=== PATIENT | male | born 1995 | race Caucasian/White ===

== ENCOUNTER 2022-03-31 08:58 | Outpatient (CLI) | payer OTHER, SELFPAY ==
[2022-03-31 18:42] LABS: Basophils Percent Auto 0.3 % (0.2-1.2); Eosinophils Absolute Auto 0.1 K/mm3 (0-0.3); Eosinophils Percent Auto 1.3 % (0-4.4); Hematocrit 47.7 % (42.0-52.0); Hemoglobin 16.5 g/dL (14.0-18.0); Immature Granulocyte Absolute 0.02 K/mm3 (0.00-0.031); Immature Granulocyte Percent A 0.3 % (0-0.5); Lymphocytes Percent Auto 38.9 % (18.3-44.2); Mean Corpuscular HGB Conc 34.6 g/dl (32-36); Mean Corpuscular Hemoglobin 31.3 pg (26-34); Mean Corpuscular Volume 90.3 fl (80-100); Mean Platelet Volume 12.5 fl (7.4-10.4); Monocytes Absolute Auto 0.7 K/mm3 (0.1-0.6); Monocytes Percent Auto 8.7 % (2.6-8.5); Neutrophils Absolute Auto 3.8 K/mm3 (1.3-6.7); Neutrophils Percent Auto 50.5 % (45.5-73.1); Platelet Count Result 177 k/mm3 (150-375); Red Blood Count 5.28 M/mm3 (4.6-6.20); Red Cell Distribution Width 11.3 % (11.5-14.5); White Blood Count 7.5 K/mm3 (4.5-10.0)
[2022-03-31 19:41] LABS: Alanine Aminotransferase 43 U/L (6-50); Albumin Level 4.6 g/dL (3.5-5.1); Alkaline Phosphatase 78 U/L (38-126); Anion Gap 4 mmol/L (8-16); Aspartate Amino Transferase 47 U/L (17-59); Bilirubin,Total 0.5 mg/dL (0.2-1.3); Blood Urea Nitrogen 16 mg/dL (9-20); Calcium 9.2 mg/dL (8.4-10.2); Carbon Dioxide 31 mmol/L (22-30); Chloride 101 mmol/L (98-107); Cholesterol 247 mg/dL (0-200); Estimated Glomerular Filt Rate > 60; Glucose 83 mg/dL (65-110); HDL Direct 42 mg/dL; Potassium 4.3 mmol/L (3.4-5.0); Sodium 136 mmol/L (137-145); Triglycerides 289 mg/dL (<150)
[2022-03-31 19:52] LABS: LDL Cholesterol Direct 114 mg/dL
== END 2022-03-31 08:59 | disposition home or self-care (01) ==
LOC: ANHGOSHLAB 08:59
PROVIDERS: PCP Internal Medicine; Visit Provider Nurse Practitioner
DX: F90.9 Attention-deficit hyperactivity disorder, unspecified type (principal); Z13.220 Encounter for screening for lipoid disorders
CPT/HCPCS: 36415; 80053; 80061; 84443; 85025

== ENCOUNTER → 2022-05-22 10:21 | Outpatient (CLI) | payer OTHER, BC, SELFPAY ==
--- NOTE | ~2022-05-22 | US_ITS ---
Ultrasound of the left groin CLINICAL HISTORY: Pain TECHNIQUE: Transabdominal imaging of the left groin region was performed. FINDINGS: Multiple morphologically normal lymph nodes are present, with fatty saud and reniform corti loren. No abnormal mass lesion or fluid collection seen. IMPRESSION: No significant abnormality seen. Reviewed, dictated and finalized at [facility].
--- NOTE | ~2022-05-22 | US_ITS ---
Testicular ultrasound with doppler. Indication: Testicular pain. Technique: Real-time sonography the scrotum was performed. Color flow Doppler and Doppler spectral an alysis were performed. Findings: The testes are homogeneous in echotexture bilaterally. There is no evidence of an intrates ticular mass. The right testis measures 3.0 x 3.7 x 1.6 cm and the left 3.6 x 2.5 x 1.8 cm. There is color-flow seen to both testes. Arterial and venous spectral waveforms are seen in both testes. There is no sonographic evidence of torsion. Subcentimeter bilateral epididymal head cysts or spermatocele s are noted. Impression: No significant abnormality seen. Reviewed, dictated and finalized at location . Impression: No significant abnormality seen.
== END ==
PROVIDERS: PCP Nurse Practitioner; Visit Provider Nurse Practitioner
DX: R10.30 Lower abdominal pain, unspecified (principal); N50.819 Testicular pain, unspecified
CPT/HCPCS: 76870; 76882; 93976

== ENCOUNTER 2024-11-04 09:23 | Outpatient (CLI) | payer OTHER, SELFPAY ==
--- OUTSIDE RECORDS SUMMARY | 2024-11-04 09:27 | XMS_ITS | Clinical Summary ---
Author Organization [address] Address [address] [place] [address] Care Team Providers Care Animal Anatomy Teacher Name Role Phone Laith ChappellRenetta MARTINEZ Primary Care Provider [phone] Allergies No known active allergies Medications dextroamphetami ne-amphetamine (ADDERALL) 10 mg tablet Take 1 tablet (10 mg total) by mouth 2 (two) times a day 2 Active propranoloL (INDERAL) 10 mg tablet Take by mouth 2 (two) times a day as needed 2 Active benzonatate (TESSALON) 200 mg capsuleIndicati ons:Cough Take 1 capsule (200 mg total) by mouth 3 (three) times a day as needed for cough 30 capsule 2 Active Additional Information Patient not taking.Reported on 09/15/2024 albuterol HFA (PROVENTIL HFA,VENTOLIN HFA,PROAIR HFA) 90 mcg/actuation inhalerIndicati ons:Cough Inhale 2 puffs every 6 (six) hours as needed for wheezing or shortness of breath 1 each 2 Active Additional Information Patient not taking.Reported on 09/15/2024 terbinafine (LamISIL) 1 % cream Apply topically 2 (two) times a day 24 g 3 Active Additional Information Patient not taking.Reported on 09/15/2024 methylphenidate HCl (RITALIN) 10 mg tablet Take 1 tablet (10 mg total) by mouth 2 (two) times a day 3 Active traZODone (DESYREL) 50 mg tablet TAKE 1 TABLET BY MOUTH EVERY NIGHT AT BEDTIME FOR SLEEP NEEDED 5 Active escitalopram (LEXAPRO) 20 mg tablet TAKE 1 TABLET BY MOUTH OCNE A DAY Active Active Problems Problem Noted Date Diagnosed Date Syncope 05/22/2020 Migraines 05/22/2020 History of seizures 01/29/2018 Migraine without aura and wi thout status migrainosus, not intractable 03/13/2016 Encounters Date Type Department Care Team Description 09/16/2024 Results Follow-Up [facility] at [address] [address] Kenna Mcfarlane NP Influenza A/B, RSV, and COVID-19 PCR Nasopharyngeal, Throat culture Throat 09/15/2024 5:05 PM CDT - 09/15/2024 11:59 [place] [address] Acute cough Discharge Disposition: Discharge to home or self care 09/15/2024 4:45 PM CDT Office Visit [facility] at [address] [address] Kenna Mcfarlane NP Acute cough (Primary Dx); Acute viral syndrome from Last 3 Months Medical History Medical History Date Comments Seizures (HCC) Migraine Syncope Social History Tobacco Use Types Packs/Day Years Used Date Smoking Tobacco: Never Smokeless Tobacco: Never Tobacco Cessation:Counseling Given: Not Answered Sex and Gender Information Value Date Recorded Sex Assigned at Not on file Legal Sex Male 2:12 AM EMAIL DEVELOPER Gender Identity Not on file Sexual Orientation Not on file Obstetrics History Last Filed Vital Signs Vital Sign Reading Time Taken Comments Blood Pressure 126/78 09/15/2024 4:44 PM CDT Pulse 78 09/15/2024 4:44 PM CDT Temperature 37.4 C (99.3 F) 09/15/2024 4:44 PM CDT Respiratory Rate 16 09/15/2024 4:44 PM CDT Oxygen Saturation 98% 09/15/2024 4:44 PM CDT Inhaled Oxygen Concentration - - Weight 105.7 kg (233 lb) 09/15/2024 4:44 PM CDT Height 180.3 cm (5' 10.98) 10/20/2022 5:24 PM C DT Body Mass Index 32.52 10/20/2022 5:24 PM CDT Plan of Treatment Health Maintenance Due Date Last Done Comments Depression Screening 1997 Hepatitis C Screening 1997 DTaP/Tdap/Td Vaccine (1 - Tdap) 2008 Varicella Vaccines (1 of 2 - 13+ 2-dose series) 2010 Hepatitis B Screening 04/11/2015 Regular Well Visit/Exam 18-64 04/11/2015 HPV Vaccines (1 - 3-dose SCD M series) 2024 Covid-19 Vaccine (4 - 2024-2 6 season) 2024 03/05/2021, 05/20/2020, 04/29/2020 Influenza Vaccine (#1) 2024 Pneumococcal vaccine <65 Aged Out No longer eligible based on patient's age to complete this topic Procedures Procedure Name Priority Date/Time Associated Diagnosis Comments THROAT CULTURE Routine 09/15/2024 5:05 PM CDT Acute cough INFLUENZA A/B, RSV, AND COVID-19 PCR Routine 09/15/2024 5:05 PM CDT Acute cough POC INFLUENZA A/B, COVID-19 ANTIGEN Routine 09/15/2024 5:02 PM CDT Acute cough POCT RAPID STREP Routine 09/15/2024 4:56 PM CDT Acute cough from Last 3 Months Results * Influenza A/B, RSV, and COVID-19 PCR Nasopharyngeal (09/15/2024 5:05 PM CDT) Pathologist [facility] COVID-19 RNA Negative Negative [facility] Influenza A RNA Negative Negative [facility] Influenza B RNA Negative Negative [facility] RSV RNA Negative Negative [facility] Comment: Interpretive data: Testing performed by [facility]. This test is performed using the [employer] Xpert Xpress CoV-2/Flu/RSV plus assay. This is a multiplex, real-time reverse transcriptase PCR assay intended for the qualitative detection of nucleic acid from SARS-CoV-2, influenza A, influenza B, and respiratory syncytial virus. This assay has been cleared by the [place] Food and Drug administration. The performance characteristics have been verified by the [facility]. Results must be considered in the clinical context, and a negative result does not rule out infection. Interpretive Data last revised 2023 Nasopharyngeal 09/15/2024 5: 05 PM CDT 09/15/2024 7:53 PM CDT Narrative JUS - 09/15/2024 9:03 PM CDT Is the Patient experiencing symptoms consistent with COVID?->Yes Kenna Mcfarlane NP LAB MICROBIOLOGY - GENERAL ORD ERABLES Final Result Performing Organization Address [facility]/ZIP Co de Phone Number MIGUELMIGUELANGEL PRESTON [address] Department [place] [address] [place] * Throat culture Throat (09/15/2024 5:05 PM CDT) Report Final Report: No growth of pathogens. Comment:Testing performed by : [facility], [address] [place]., [address] Throat 09/15/2024 5:05 PM CDT 09/15/2024 10:15 PM CDT Narrative JUS - 09/16/2024 7:27 PM CDT Testing performed by [facility] Microbiology Laboratory ([phone]). Kenna Mcfarlane NP LAB MICROBIOLOGY - GENERAL ORD ERABLES Final Result Performing Organization Address [facility] Co de Phone Number MIGUELMIGUELANGEL PRESTON [address] Department [place] [address] * POC Influenza A/B, COVID-19 antigen (09/15/2024 5:02 PM CDT) Influenza A Ag, POC Negative Negative [facility] Influenza B Ag, POC Negative Negative [facility] COVID-19 Ag POC Presumptive Negative Presumptive Negative, Invalid [facility] Swab 09/15/2024 5:02 PM CDT Kenna M. Trower PLASTIC WELDING MACHINE OPERATOR POINT OF CARE TEST ORDERABLES Final Result [facility] [id number] * POCT rapid strep A (09/15/2024 4:56 PM CDT) Rapid Strep A, POC Negative Negative Swab 09/15/2024 4:56 PM CDT Kenna Mcfarlane PLASTIC WELDING MACHINE OPERATOR POINT OF CARE TEST ORDERABLES Final Result from Last 3 Months Insurance [facility] Care Teams Animal Anatomy Teacher Relationship Specialty Start Date End Date Yablonsky, Laith B., DO PCP - General Internal Medicine 04/21/22
--- OUTSIDE RECORDS SUMMARY | 2024-11-04 09:27 | XMS_ITS | Encounter Summary ---
Author Organization [facility] Address [address] [place] [place] [address] Care Team Providers Care Folder Operator Name Role Phone Yara Romero MD Primary Care Provider [phone] Encounter Details Date Type Department Care Team (Late st Contact Info) Description 03/26/2023 Telephone [facility] - Neurology [address] [place] [address], [place] [address] Ian Mccullough, [address] [place] [phone] Social History Tobacco Use Types Packs/Day Years Used Date Smoking Tobacco: Never Smokeless Tobacco: Never Alcohol Use Standard Drinks/Week Comments No 0 (1 standard drink = 0.6 oz pur e alcohol) Sex and Gender Information Value Date Recorded Sex Assigned at Not on file Legal Sex Male 7:22 AM MORPHOLOGY TEACHER Gender Identity Not on file Sexual Orientation Not on file documented as of this encounter Miscellaneous Notes * Telephone Encounter - Minnie Bella 03/26/2023 1:19 PM CST Current Provider name:Dr Mccullough Reason for call: Pt calling said he needs to get form sign so he canrenew his license ayana, did schedule with Jamel for 07/21 Said he needs it ayana or he will not be able to drive for 3 months. Patient Call Back number: [phone] HOLOGY TEACHER documented in this encounter Plan of Treatment Not on file documented as of this encounter Visit Diagnoses Not on filedocumented in this encounter Care Teams Folder Operator Relationship Specialty Start Date End Date Yara Romero MD PCP - General 04/05/20 documented as of this encounter
--- OUTSIDE RECORDS SUMMARY | 2024-11-04 09:27 | XMS_ITS | Clinical Summary ---
Author Organization [facility] Address [address] [place] [address] Care Team Providers Care System Support Developer Name Role Phone Yara Romero MD Primary Care Provider [phone] Source Comments [facility],non-owned Affiliates and Associated Physician Practices is amultiple site organization consisting of ambulatory clinics and hospital sitesin [place], [place], [place] and [place]. This disclosure is being madepursuant to the Care Everywhere program and may not contain all information available regarding this patient. Last updated 17.[facility] Allergies No known active allergies Medications * Be aware that medications may not be up to date on this document. Alwaysverify current medications with the patient. propranolol (Inderal) 10 MG tablet Take 1 (one) tablet by mouth 2 times daily as needed 01/26/2023 Active methylphenidate (Ritalin) 10 MG tablet Take 1 (one) tablet by mouth 2 times daily 12/01/2022 Active Active Problems Problem Noted Date Diagnosed Date Syncope 05/22/2020 Migraines 05/22/2020 Encounter for screening for cardiovascular disor ders 05/22/2020 History of seizures 01/29/2018 Migraine without aura and wi thout status migrainosus, not intractable 03/13/2016 Family History Medical History Relation Name Comments Migraine Mother Depression Neg Hx Seizures Neg Hx Relation Name Status Comments Mother Social History Tobacco Use Types Packs/Day Years Used Date Smoking Tobacco: Never Smokeless Tobacco: Never Tobacco Cessation:Counseling Given: Not Answered Alcohol Use Standard Drinks/Week Comments No 0 (1 standard drink = 0.6 oz pur e alcohol) Sex and Gender Information Value Date Recorded Sex Assigned at Not on file Legal Sex Male 7:22 AM DENTAL THERAPIST Gender Identity Not on file Sexual Orientation Not on file Last Filed Vital Signs Vital Sign Reading Time Taken Comments Blood Pressure 132/87 04/01/2023 2:59 PM DENTAL THERAPIST Pulse 83 04/01/2023 2:59 PM DENTAL THERAPIST Temperature 35.7 C (96.3 F) 04/01/2023 2:59 PM DENTAL THERAPIST Respiratory Rate 21 03/29/2020 12:33 PM DENTAL THERAPIST Oxygen Saturation 99% 04/01/2023 2:59 PM DENTAL THERAPIST Inhaled Oxygen Concentration - - Weight 99.8 kg (220 lb) 04/01/2023 2:59 PM DENTAL THERAPIST Height 182.9 cm (6') 10/03/2020 7:52 AM CDT Body Mass Index 29.84 10/03/2020 7:52 AM CDT Plan of Treatment Health Maintenance Due Date Last Done Comments HIV SCREENING 2012 HEPATITIS C SCREENING 04/06/2015 DTAP/TDAP/TD VACCINES (1 - Tdap) 2016 HEPATITIS B VACCINE (1 of 3 - 19+ 3-dose series) 2016 DEPRESSION SCREENING 02/10/2024 HPV VACCINE (1 - 3-dose SCDM series) 2024 COVID-19 VACCINE ( - 2023-2 5 season) 2024 INFLUENZA VACCINE (#1) 2024 ZOSTER VACCINE (1 of 2) 04/11/2047 HIB VACCINE Aged Out No longer eligi ble based on patient's age to complete this topic MENINGOCOCCAL (Group B) VACC INE SHARED DECISION-MAKING Aged Out No longer eligibl e based on patient's age to complete this topic MENINGOCOCCAL GROUPS A/C/Y/W VACCINE Aged Out No longer eligible b ased on patient's age to complete this topic PNEUMOCOCCAL VACCINE Aged Out No long er eligible based on patient's age to complete this topic Insurance [employer] [place] Member Subscriber Plan / Payer (Ef fective 2020-Present) Name:Derrick Zapien Relation to Subscriber:Child Name:DERRICK ZAPIEN Date of :1964 (Home) Address[address] [place] [address] Payer ID:[id number] (NAIC) Type:PPO Address: [address] [facility] Care Teams System Support Developer Relationship Specialty Start Date End Date Yara Romero MD PCP - General 04/05/20
--- OUTSIDE RECORDS SUMMARY | 2024-11-04 09:27 | XMS_ITS | Encounter Summary ---
Author Organization [facility] Healthcare Address [address] [place] [address] Care Team Providers Care Dry Ice Machine Operator Name Role Phone Misti Laith WongRenetta MARTINEZ Primary Care Provider [phone] Encounter Details Date Type Department Care Team (Late st Contact Info) Description 09/16/2024 Results Follow-Up [facility] Convenient Care at [address] [address] Kenna Mcfarlane NP [address] [place] [address] [address] [place] [address] Influenza A/B, RSV, and COVID-19 PCR Nasopharyngeal, Throat culture Throat Social History Tobacco Use Types Packs/Day Years Used Date Smoking Tobacco: Never Smokeless Tobacco: Never Sex and Gender Information Value Date Recorded Sex Assigned at Not on file Legal Sex 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 Pt verbalized understanding. * Result Encounter Note - Kenna Mcfarlane NP - 09/16/2024 7:33 PM CDT Please alert patient of negative strep culture. Patient should continue tylenol/ibuprofen as directed for discomfort and f/u with PCP if symptoms persist. * Result Encounter Note - Joie Minaya LPN - 09/16/2024 11:24 AM CDT Notified pt of their results and follow up instructions. Pt verbalized understanding. * Result Encounter Note - Kenna Mcfarlane NP - 09/16/2024 7:36 AM CDT Please notify patient of negative COVID-19/RSV/FLU test. Patient should rest, stay hydrated, and take OTC medications as needed. Monitor symptoms and if they worsen follow up with primary care doctoror ER if needed. documented in this encounter Plan of Treatment Not on file documented as of this encounter Visit Diagnoses Not on filedocumented in this encounter Care Teams Dry Ice Machine Operator Relationship Specialty Start Date End Date Laith Chappell DO PCP - General Internal Medicine 04/21/22 documented as of this encounter
[2024-11-04 18:10] LABS: Hematocrit 46.6 % (42.0-52.0); Hemoglobin 15.8 g/dL (14.0-18.0); Immature Granulocyte Percent A 0.3 % (0-0.5); Lymphocytes Absolute Auto 2.67 K/mm3 (0.9-3.2); Mean Corpuscular HGB Conc 33.9 g/dl (32-36); Mean Corpuscular Hemoglobin 30.3 pg (26-34); Mean Corpuscular Volume 89.4 fl (80-100); Nucleated Red Blood Cells Absolute Auto 0.000 K/mm3 (0.0-0.012); Nucleated Red Blood Cells Perc 0.0 % (0.0-0.2); Platelet Count Result 166 k/mm3 (150-375); Red Blood Count 5.21 M/mm3 (4.6-6.20); White Blood Count 7.2 K/mm3 (4.5-10.0)
[2024-11-04 18:28] LABS: Alanine Aminotransferase 52 U/L (6-50); Albumin Level 4.7 g/dL (3.5-5.1); Alkaline Phosphatase 72 U/L (38-126); Anion Gap 8 mmol/L (4-12); Aspartate Amino Transferase 63 U/L (17-59); Bilirubin,Total 0.7 mg/dL (0.2-1.3); Blood Urea Nitrogen 15 mg/dL (9-20); Calcium 9.7 mg/dL (8.4-10.2); Carbon Dioxide 28 mmol/L (22-30); Chloride 104 mmol/L (98-107); Cholesterol 256 mg/dL (0-200); Estimated Glomerular Filt Rate > 60; Glucose 81 mg/dL (65-110); HDL Direct 43 mg/dL; Potassium 4.7 mmol/L (3.4-5.0); Sodium 140 mmol/L (137-145); Total Protein 8.7 g/dL (6.3-8.2); Triglycerides 156 mg/dL (<150)
[2024-11-04 19:08] LABS: Thyroid Stimulating Hormone 1.900 uIU/mL (0.465-4.680)
== END 2024-11-04 09:24 | disposition home or self-care (01) ==
LOC: ANHGOSHLAB 09:24
PROVIDERS: PCP Internal Medicine; Visit Provider Nurse Practitioner
DX: Z13.220 Encounter for screening for lipoid disorders (principal); G43.909 Migraine, unspecified, not intractable, without status migrainosus; F90.9 Attention-deficit hyperactivity disorder, unspecified type
CPT/HCPCS: 36415; 80053; 80061; 84443; 85025

== ENCOUNTER 2025-01-30 10:07 | Outpatient (CLI) | payer OTHER, SELFPAY ==
--- OUTSIDE RECORDS SUMMARY | 2025-01-30 11:33 | XMS_ITS | Clinical Summary ---
Author Organization [facility] Address [address] [facility] [place] [address] Care Team Providers Care Truck Body Builder Apprentice Name Role Phone Araceli Edmonds 2ND PRESSMAN-GLOBAL CHIEF EXPERIENCE OFFICER Primary Care Provider [phone] Source Comments [facility],non-owned Affiliates and Associated Physician Practices is amultiple site organization consisting of ambulatory clinics and hospital sitesin [place], [place], [place] and [place]. This disclosure is being madepursuant to the Care Everywhere program and may not contain all information available regarding this patient. Last updated 17.[facility] Allergies No known active allergies Medications * Be aware that medications may not be up to date on this document. Alwaysverify current medications with the patient. propranolol (Inderal) 10 MG tablet Take 1 (one) tablet by mouth 2 times daily as needed 01/26/2023 Active methylphenidate (Ritalin) 10 MG tablet Take 1 (one) tablet by mouth 2 times daily 12/01/2022 Active escitalopram (Lexapro) 20 MG tablet Take 1 (one) tablet by mouth once daily Active traZODone (Desyrel) 50 MG tablet Take 1 (one) tablet by mouth at bedtime Active SUMAtriptan (Imitrex) 50 MG tabletIndication s:Migraine without aura and without status migrainosus, not intractable 1 tablet at the onset of migraine; may repeat after 2 hours once in a 24 hour period if needed 9 tablet 4 12/01/2024 Active Active Problems Problem Noted Date Diagnosed Date Syncope 05/22/2020 Migraines 05/22/2020 Encounter for screening for cardiovascular disor ders 05/22/2020 History of seizures 01/29/2018 Migraine without aura and wi thout status migrainosus, not intractable 03/13/2016 Encounters Date Type Department Care Team Description 12/29/2024 Refill [facility] - Neurology [address] [place] [phone] Netta Churchill APRN-CNP MEDICATION REFILL 12/01/2024 11:00 AM CDT Office Visit [facility] - Neurology [address] [place] [phone] Netta Churchill APRN-CNP Migraine without aura and without status migrainosus, not intractable (Primary Dx) 12/01/2024 Travel 11/08/2024 Travel from Last 3 Months Family History Medical History Relation Name Comments Migraine Mother Depression Neg Hx Seizures Neg Hx Relation Name Status Comments Mother Social History Tobacco Use Types Packs/Day Years Used Date Smoking Tobacco: Never Smokeless Tobacco: Never Tobacco Cessation:Counseling Given: Not Answered Alcohol Use Standard Drinks/Week Comments No 0 (1 standard drink = 0.6 oz pur e alcohol) AUDIT-C Answer Date Recorded Q1: How often do you have a drink containing alc ohol? 2-4 times a month 12/01/2024 Average Number of Drinks Not on file 025 Frequency of Binge Drinking Not on file 11/10 Sex and Gender Information Value Date Recorded Sex Assigned at Not on file Legal Sex Male 7:22 AM WOOD CASKET ASSEMBLER Gender Identity Not on file Sexual Orientation Not on file Last Filed Vital Signs Vital Sign Reading Time Taken Comments Blood Pressure 120/87 12/01/2024 11:14 AM CDT Pulse 77 12/01/2024 11:14 AM CDT Temperature 35.7 C (96.3 F) 04/01/2023 2:59 PM WOOD CASKET ASSEMBLER Respiratory Rate 21 03/29/2020 12:33 PM WOOD CASKET ASSEMBLER Oxygen Saturation 97% 12/01/2024 11:14 AM CDT Inhaled Oxygen Concentration - - Weight 106.8 kg (235 lb 8 oz) 12/01/2024 11:14 A M CDT Height 182.9 cm (6') 12/01/2024 11:14 AM CDT Body Mass Index 31.94 12/01/2024 11:14 AM CDT Plan of Treatment Health Maintenance Due Date Last Done Comments HIV SCREENING 2012 HEPATITIS C SCREENING 04/06/2015 DTAP/TDAP/TD VACCINES (1 - Tdap) 2016 HEPATITIS B VACCINE (1 of 3 - 19+ 3-dose series) 2016 DEPRESSION SCREENING 02/10/2024 HPV VACCINE (1 - 3-dose SCDM series) 2024 COVID-19 VACCINE (1 - 2024-2 6 season) 2024 INFLUENZA VACCINE (#1) 2024 ZOSTER [...] age to complete this topic Insurance AETNA [facility] Subscriber Plan / Payer (Ef fective 2020-Present) Name:Derrick Zapien Relation to Subscriber:Child Name:DERRICK ZAPIEN Date of :1962 (Home) Address: [address] [place] [address] Payer ID:[id number] (NAIC) Type:PPO Address: [address] [facility] Care Teams Truck Body Builder Apprentice Relationship Specialty Start Date End Date Araceli Edmonds APRN-JOSÉ [address] [place] [address] PCP - General Nurse Practitioner 11/08/24
--- OUTSIDE RECORDS SUMMARY | 2025-01-30 11:33 | XMS_ITS | Clinical Summary ---
Author Organization [address] Address [address] [place] [address] Care Team Providers Care Weeder Name Role Phone Laith ChappellRenetta MARTINEZ Primary Care Provider [phone] Allergies No known active allergies Medications dextroamphetami [...] 1 TABLET BY MOUTH OCNE A DAY 5 Active Active Problems Problem Noted Date Diagnosed Date Syncope 05/22/2020 Migraines 05/22/2020 History of seizures 01/29/2018 Migraine without aura and wi thout status migrainosus, not intractable 03/13/2016 Medical History Medical History Date Comments Seizures (HCC) Migraine Syncope Social History Tobacco Use Types Packs/Day Years Used Date Smoking Tobacco: Never Smokeless Tobacco: Never Tobacco Cessation:Counseling Given: Not Answered Sex and Gender Information Value Date Recorded Sex Assigned at Not on file Legal Sex Male 2:12 AM APPLICATIONS SALES CONSULTANT Gender Identity Not on file Sexual Orientation [...] 3-dose SCD M series) 2024 Covid-19 Vaccine ( - 2024-2 6 season) 2024 03/05/2021, 05/20/2020, 04/29/2020 Influenza Vaccine (#1) 2024 Pneumococcal vaccine <65 Aged Out No longer eligible based on patient's age to complete this topic Insurance [facility] Care Teams Weeder Relationship Specialty Start Date End Date Laith Chappell DO PCP - General Internal Medicine 04/21/22
--- OUTSIDE RECORDS SUMMARY | 2025-01-30 11:33 | XMS_ITS | Encounter Summary ---
Author Organization [facility] Address [address] [facility] [place] [address] Care Team Providers Care Ball Points Inspector Name Role Phone Yara Romero MD Primary Care Provider Araceli Edmonds APRN-CHIEF OPERATOR HYDROFORMER Primary Care Provider [phone] Encounter Details Date Type Department Care Team (Late st Contact Info) Description 03/26/2023 Telephone [facility] - Neurology [address] [place] [address], [place] [address] Ian Mccullough DO [address] [place] [address] [place] [address] Social History Tobacco Use Types Packs/Day Years Used Date Smoking Tobacco: Never Smokeless Tobacco: Never Alcohol Use Standard Drinks/Week Comments No 0 (1 standard drink = 0.6 oz pur e alcohol) Sex and Gender Information Value Date Recorded Sex Assigned at Not on file Legal Sex Male 7:22 AM CLINIC OFFICE COORDINATOR Gender Identity Not on file Sexual Orientation Not on file documented as of this encounter Miscellaneous Notes * Telephone Encounter - Jena Minnie - 03/26/2023 1:19 PM CST Current Provider name:Dr Mccullough Reason for call: Pt calling said he needs to get form sign so he canrenew his license ayana, did schedule with Jamel for 07/21 Said he needs it ayana or he will not be able to drive for 3 months. Patient Call Back number: [phone] IC OFFICE COORDINATOR documented in this encounter Plan of Treatment Not on file documented as of this encounter Visit Diagnoses Not on filedocumented in this encounter Care Teams Ball Points Inspector Relationship Specialty Start Date End Date Yara Romero MD PCP - General 04/05/20 11/07/24 Araceli Edmonds, DALIA-CHIEF OPERATOR HYDROFORMER [address] [place] [address] PCP - General Nurse Practitioner 11/08/24 documented as of this encounter
[2025-01-30 14:21] LABS: Alanine Aminotransferase 55 U/L (6-50); Albumin Level 4.6 g/dL (3.5-5.1); Alkaline Phosphatase 85 U/L (38-126); Anion Gap 9 mmol/L (4-12); Aspartate Amino Transferase 65 U/L (17-59); Bilirubin,Total 0.6 mg/dL (0.2-1.3); Blood Urea Nitrogen 14 mg/dL (9-20); Calcium 9.5 mg/dL (8.4-10.2); Carbon Dioxide 26 mmol/L (22-30); Chloride 105 mmol/L (98-107); Estimated Glomerular Filt Rate > 60; Glucose 96 mg/dL (65-110); Potassium 4.1 mmol/L (3.4-5.0); Sodium 140 mmol/L (137-145); Total Protein 8.6 g/dL (6.3-8.2)
== END 2025-01-30 10:08 | disposition home or self-care (01) ==
LOC: ANHGOSHLAB 10:08
PROVIDERS: PCP Internal Medicine; Visit Provider Nurse Practitioner
DX: R74.8 Abnormal levels of other serum enzymes (principal)
CPT/HCPCS: 36415; 80053